=== PATIENT | female | born 1995 | race Caucasian/White ===

== ENCOUNTER 2023-02-17 01:19 | Emergency (ER) | payer SELFPAY ==
[~2023-02-17] VITALS: Ht 162.6 cm; Wt 70.0 kg
[2023-02-17 01:43] VITALS: BP 112/68; PULSE 71; RESP 18; TEMP 98.2; O2SAT 98
[2023-02-17] MEDS ORDERED: ACETAMINOPHEN 325MG TABLET PO STA (01:51)
== END 2023-02-17 08:25 | disposition home or self-care (01) ==
LOC: ER 01:19
DX: F10.129 Alcohol abuse with intoxication, unspecified (principal); R51.9 Headache, unspecified; Y90.9 Presence of alcohol in blood, level not specified
CPT/HCPCS: 99284